=== PATIENT | female | born 1995 ===

== ENCOUNTER 2025-05-06 06:56 | Day surgery (SDC) | payer BC ==
[~2025-05-06 06:56] MED LIST: Sodium Chloride 0.9% 10 ML Syringe FLUSH PRN; Sodium Chloride 0.9% 10 ML Syringe FLUSH SCH
[2025-05-06] MEDS: Lactated Ringers 1,000 ML IV SCH (07:26)
[2025-05-06] MEDS ORDERED: Propofol 200 MG/20 ML SDV ONE (08:29)
[2025-05-06] MEDS ORDERED: Ondansetron 4 MG/2 ML SDV IVPUSH PRN (09:00)
[2025-05-06] MEDS ORDERED: fentaNYL 100 MCG/2 ML SDV IVPUSH PRN (09:00)
== END 2025-05-06 09:37 | disposition home or self-care (01) ==
LOC: JD.SDS 06:56
PROVIDERS: ATTEND Surgery
DX: K29.50 Unspecified chronic gastritis without bleeding (principal); K21.00 Gastro-esophageal reflux disease with esophagitis, without bleeding; Z88.8 Allergy status to other drugs, medicaments and biological substances; Z79.899 Other long term (current) drug therapy
CPT/HCPCS: 43239; C9777; J2003; J2704; J7120; 00731